=== PATIENT | female | born 1960 | race Hispanic/Latino ===

== ENCOUNTER 2018-01-15 19:47 | Observation (INO) | payer OTHER ==
[~2018-01-15] VITALS: Ht 152.4 cm; Wt 81.2 kg
[~2018-01-15 19:47] MED LIST: CALCIUM GLUCON500 MG PO; CYTOMEL 25 MCG25 MCG PO; NO HOME; PERCOCET 325 MG1 TA2 PO
--- NOTE | 2018-01-15 20:15 | ED GI/GU/ABDOMINAL COMPLAINT ---
History of Present Illness General Chief Complaint: Abdominal Pain/Flank Pain Stated Complaint: "ABD PAIN" Source: patient, family Exam Limitations: language barrier Allergies Coded Allergies: NO KNOWN ALLERGIES (07/10/15) Triage Note: PT FROM HOME C/O MID ABD PAIN SINCE 01/14/18 AT 2130. PT STATES SHE DRANK A DETOX TEA AND SINCE THEN HAS HAD CONSTANT BURNING SENSATION IN HER MID ABD THAT IS NON RADIATING. PT STATES SHE HAS NOT HAD A BOWEL MOVEMENT IN THE PAST 24 HRS. 01/06/18 PT HAD A COLONOSCOPY. PT STATES TAKING TUMS WITHOUT RELIEF. Triage Nurses Notes Reviewed? yes ? n Is pt currently ? No Onset: Abrupt Duration: day(s): Timing: recent history Quality/Severity: moderate Location: generalized abdomen Radiation: no radiation Activities at Onset: none HPI: 57-year-old female comes into the emergency room for further evaluation of generalized abdominal pain nausea and 1 episode of vomiting here in the emergency room. Symptoms began yesterday around 9 PM it got progressively worse. Denies any prior abdominal surgeries. Last bowel movement yesterday. Denies any urinary symptoms. Denies any chest pain or shortness of breath. She comes in for further evaluation. (Alexander CASTAÑEDA,Mando) Vital Signs & Intake/Output Vital Signs & Intake/Output Vital Signs Date Time Temp Pulse Resp B/P B/P Pulse O2 O2 Flow FiO2 Mean Ox Delivery Rate 01/17 0620 98.4 87 18 106/58 91 Room Air ED Intake and Output / 0000 05/ 1200 Intake Total 1060 Output Total 1250 Balance -190 Intake, IV 1000 Intake, Oral 60 Output, Urine 1250 (Velvet CASTAÑEDA,Mirna Farrell) Reconcile Medications Calcium Gluconate 500 MG TAB 1 TAB PO BID HEALTH SUPPLEMENT Liothyronine Sodium (Cytomel) 25 MCG TABLET 1 TAB PO DAILY thyroid (Reported) Oxycodone HCl/Acetaminophen (Percocet 5-325 MG Tablet) 5 MG-325 MG TABLET 1-2 TAB PO Q4-6 PRN PAIN (Tiffany GARCIA,Arsenio Blair) Past History Travel History Traveled to [place] past 21 day No Medical History Any Pertinent Medical History? see below for history Endocrine: hyperthyroidism History of MRSA: No History of VRE: No History of CDIFF: No Surgical History Surgical History: hysterectomy Psychosocial History Who do you live with Patient/Self What is your primary language English Tobacco Use: Never used Family History Hx Contributory? No (Mando Armstrong) Review of Systems Review of Systems Constitutional: Reports: no symptoms. EENTM: Reports: no symptoms. Respiratory: Reports: no symptoms. Cardiovascular: Reports: no symptoms. GI: Reports: see HPI. Genitourinary: Reports: no symptoms. Musculoskeletal: Reports: no symptoms. Skin: Reports: no symptoms. Neurological/Psychological: Reports: no symptoms. Hematologic/Endocrine: Reports: no symptoms. Immunologic/Allergic: Reports: no symptoms. All Other Systems: Reviewed and Negative (Mando Armstrong) Physical Exam Physical Exam General Appearance: well developed/nourished, alert, awake Head: atraumatic Eyes: Bilateral: normal appearance. Ears, Nose, Throat, Mouth: hearing grossly normal, moist mucous membrane Neck: normal inspection Respiratory: normal breath sounds, no respiratory distress Cardiovascular: regular rate/rhythm Gastrointestinal: soft, tenderness Back: normal inspection Extremities: normal range of motion Neurologic/Psych: awake, alert, oriented x 3 Skin: intact, normal color (Mando Armstrong) Core Measures ACS in differential dx? No Sepsis Present: No Sepsis Focused Exam Completed? No (Mirna Morin) Progress Differential Diagnosis: AMI, appendicitis, biliary colic, bowel obstruction, cholecystitis, diverticulitis, gastritis, ischemic bowel, pancreatitis, PID/ cervicitis, PUD/GERD, perforated viscous, SBO, UTI/pyelo Diagnostic Imaging: Viewed by Me: CT Scan. Discussed w/RAD: CT Scan. Initial ED EKG: normal sinus rhythm, rate (57) Hand-Off Endorsed To: Mirna Morin (Mando Armstrong) Plan of Care: Orders Procedure Date/time Status Wound Care/Dressing 01/17 0310 Active Discharge Patient 01/17 UNK Active OXYGEN SETUP CHG 01/16 UNK Complete OXYGEN 01/16 UNK Complete Laboratory Tests 01/17/18 0650: Anion Gap 12, Estimated GFR > 60, BUN/Creatinine Ratio 13.3, Total Bilirubin 0.5 , Direct Bilirubin 0.4, AST 99 H, ALT 161 H, Alkaline Phosphatase 107, Total Protein 6.1 L, Albumin 3.3 L Radiology Impression: PATIENT: NUVIA PEARCE PRESENT AGE: 57 PATIENT ACCOUNT NO: [id number] : 61 LOCATION: [facility] ORDERING PHYSICIAN: Mando CASTAÑEDA SERVICE DATE: 01/15/18 EXAM TYPE : CAT - CT ABD & PELVIS W IV CONTRAST EXAMINATION: CT ABDOMEN AND PELVIS WITH CONTRAST CLINICAL INFORMATION: Generalized abdominal pain. COMPARISON: None available. TECHNIQUE: Multidetector volumetric imaging was performed of the abdomen and pelvis following IV administration of 65 mL of Omnipaque 300 intravenous contrast. Sagittal and coronal reformatted images were obtained on the technologist's workstation. DLP: 536.08 mGy-cm FINDINGS: LUNG BASES: Mild hypoventilatory changes of the partially visualized lower lungs. LIVER, GALLBLADDER, AND BILIARY TREE: The liver is normal in size, shape, and attenuation. No focal hepatic lesion or biliary ductal dilatation is present. The gallbladder is mildly distended. No radiopaque stones. No gallbladder wall thickening. Minimal pericholecystic stranding of the adjacent fat. Common bile duct is normal. PANCREAS: Unremarkable. SPLEEN: Unremarkable. ADRENAL GLANDS: Unremarkable. KIDNEYS AND URETERS: The kidneys are normal in size, shape, and attenuation. No hydronephrosis, hydroureter, or calculi seen. No perinephric stranding. There are 2, tiny hypodensities in the left kidney is too small to characterize but most likely represents cysts. BLADDER: Unremarkable. GASTROINTESTINAL TRACT: The small and large bowel are unremarkable. The appendix is unremarkable. ABDOMINAL WALL: No significant hernia is appreciated. LYMPH NODES: Normal. VASCULAR: Unremarkable. PELVIC VISCERA: Unremarkable. OSSEOUS STRUCTURES: Unremarkable. IMPRESSION: Mildly distended gallbladder with possible minimal pericholecystic inflammatory stranding of the adjacent fat. This apparent stranding could be artifactual. Consider right upper quadrant ultrasound for further evaluation. Alternatively, if there is concern for acute cholecystitis, HIDA scan could also be obtained. No radiopaque gallstones. Common bile duct is not dilated. Otherwise unremarkable CT of the abdomen and pelvis. DICTATED BY: Pavan Scott MD DATE/TIME DICTATED:01/15/182219 LOTTERIES AGENT:CARMEN DATE/TIME TRANSCRIBED:01/15/182219 CONFIDENTIAL, DO NOT COPY WITHOUT APPROPRIATE AUTHORIZATION. <Electronically signed in Other Vendor System> SIGNED BY: Pavan Scott MD 01/15/182228 Comments: CT scan shows mild distention of gallbladder with minimal surrounding fat stranding. Patient reports improvement in her pain. I examined the patient's abdomen, she has RUQ tenderness at this time. Lactic acid is elevated. Awaiting general surgery consult. 11:25 PM - spoke with Vaughn Burns MD regarding this patient. Surgical PA to evaluate the patient. 11:55 PM - following evaluation by surgical PA patient to be surgical observation for gallbladder ultrasound tomorrow and futher surgical evlauation. (Velvet CASTAÑEDA,Mirna Farrell) Departure Departure Condition: Stable Referrals: Isela GARCIA,Connie Dominguez (PCP/Family) Departure Forms: Customer Survey General Discharge Information (Mando Armstrong) Departure Disposition: STILL A PATIENT Clinical Impression Primary Impression: Abdominal pain Qualifiers: Abdominal location: right upper quadrant Qualified Code: R10.11 - Right upper quadrant pain Secondary Impressions: Gallbladder dilatation Observation Note Spoke With: Gratn GARCIA,Vaughn Roman Physician Advisor Notified: COREY WARD DO Place Patient In: Non-ED OBS Care Area Rationale for Observation: My rational for observation is as follows [persistent abdominal pain with CAT scan showing gallbladder dilation and possible surrounding inflammation requiring gallbladder ultrasound, Gen. surgery consult, IV fluids, premature discharge medically unsafe]. (Velvet CASTAÑEDA,Mirna Farrell) Departure Prescriptions: Current Visit Scripts Oxycodone HCl/Acetaminophen (Percocet 5-325 MG Tablet) 1-2 TAB PO Q4-6 PRN PAIN #36 TAB PA/CARD SERVICES SPECIALIST Co-Sign Statement Statement: ED Attending supervision documentation- [] I saw and evaluated the patient. I have also reviewed all the pertinent lab results and diagnostic results. I agree with the findings and the plan of care as documented in the PA's/CARD SERVICES SPECIALIST's documentation. [x] I have reviewed the ED Record and agree with the PA's/CARD SERVICES SPECIALIST's documentation. [] Additions or exceptions (if any) to the PAs/CARD SERVICES SPECIALIST's note and plan are summarized below: [] (Tiffany GARCIA,Arsenio Blair) (Morphine) Morphine Sulfate 4 MG Q4P PRN 01/16 0100 AC (MORPHINE SULFATE) Ondansetron HCl 4 MG Q6P PRN 01/16 0100 AC (Zofran) Acetaminophen 1,000 MG Q6P PRN 01/16 0030 AC (Ofirmev) N/A 1 UNIT (No Carrier) Heparin Sodium 5,000 UNIT Q8 01/16 0014 AC 01/16 (Porcine) 1356 Laboratory Tests 01/16/18 0800: Anion Gap 10, Estimated GFR > 60, BUN/Creatinine Ratio 18.3, Total Bilirubin 0.4 , Direct Bilirubin 0.2, AST 32, ALT 54 H, Alkaline Phosphatase 92, Total Protein 5.7 L, Albumin 3.1 L, Lipase 55, PT 12.2, INR 1.12, APTT 27, CBC w Diff NO MAN DIFF REQ, RBC 3.78 L, MCV 92.9, MCH 32.0 H, MCHC 34.4, RDW 13.2, MPV 8.8, Gran % 63.6, Lymphocytes % 28.0, Monocytes % 6.8, Eosinophils % 1.3, Basophils % 0.3, Absolute Granulocytes 4.5, Absolute Lymphocytes 2.0, Absolute Monocytes 0.5, Absolute Eosinophils 0.1, Absolute Basophils 0 01/15/18 2330: Lactic Acid 1.4 01/15/18 2245: Urine Color YEL, Urine Clarity CLEAR, Urine pH 6.5, Ur Specific [place] 1.015, Urine Protein NEG, Urine Ketones NEG, Urine Nitrite NEG, Urine Bilirubin NEG, Urine Urobilinogen 0.2, Ur Leukocyte Esterase NEG, Ur Microscopic SEDIMENT EXAMINED, Urine RBC RARE, Urine WBC 1-3 H, Ur Epithelial Cells FEW, Urine Bacteria RARE H, Urine Mucus FEW, Urine Hemoglobin SMALL H, Urine Glucose NEG 01/15/182034: Anion Gap 14, Estimated GFR > 60, BUN/Creatinine Ratio 16.7, Glucose 119 H, Lactic Acid 2.5 H, Calcium 9.5, Total Bilirubin 0.5, Direct Bilirubin 0.3, AST 44 H, ALT 55 H, Alkaline Phosphatase 116, Troponin I < 0.01, Total Protein 7.5 , Albumin 4.4, Amylase 55, Lipase 89, CBC w Diff NO MAN DIFF REQ, RBC 4.63, MCV 92.6, MCH 30.6, MCHC 33.1, RDW 13.0, MPV 8.4, Gran % 73.2, Lymphocytes % 18.4 L , Monocytes % 7.3, Eosinophils % 0.8, Basophils % 0.3, Absolute Granulocytes 9.1 H, Absolute Lymphocytes 2.3, Absolute Monocytes 0.9 H, Absolute Eosinophils 0.1, Absolute Basophils 0 01/15/182025: Lactic Acid Cancelled Radiology Impression: PATIENT: NUVIA PEARCE PRESENT AGE: 57 PATIENT ACCOUNT NO: [id number] : 62 LOCATION: [facility] ORDERING PHYSICIAN: Mando CASTAÑEDA SERVICE DATE: 01/15/18 EXAM TYPE : CAT - CT ABD & PELVIS W IV CONTRAST EXAMINATION: CT ABDOMEN AND PELVIS WITH CONTRAST CLINICAL INFORMATION: Generalized abdominal pain. COMPARISON: None available. TECHNIQUE: Multidetector volumetric imaging was performed of the abdomen and pelvis following IV administration of 65 mL of Omnipaque 300 intravenous contrast. Sagittal and coronal reformatted images were obtained on the technologist's workstation. DLP: 536.08 mGy-cm FINDINGS: LUNG BASES: Mild hypoventilatory changes of the partially visualized lower lungs. LIVER, GALLBLADDER, AND BILIARY TREE: The liver is normal in size, shape, and attenuation. No focal hepatic lesion or biliary ductal dilatation is present. The gallbladder is mildly distended. No radiopaque stones. No gallbladder wall thickening. Minimal pericholecystic stranding of the adjacent fat. Common bile duct is normal. PANCREAS: Unremarkable. SPLEEN: Unremarkable. ADRENAL GLANDS: Unremarkable. KIDNEYS AND URETERS: The kidneys are normal in size, shape, and attenuation. No hydronephrosis, hydroureter, or calculi seen. No perinephric stranding. There are 2, tiny hypodensities in the left kidney is too small to characterize but most likely represents cysts. BLADDER: Unremarkable. GASTROINTESTINAL TRACT: The small and large bowel are unremarkable. The appendix is unremarkable. ABDOMINAL WALL: No significant hernia is appreciated. LYMPH NODES: Normal. VASCULAR: Unremarkable. PELVIC VISCERA: Unremarkable. OSSEOUS STRUCTURES: Unremarkable. IMPRESSION: Mildly distended gallbladder with possible minimal pericholecystic inflammatory stranding of the adjacent fat. This apparent stranding could be artifactual. Consider right upper quadrant ultrasound for further evaluation. Alternatively, if there is concern for acute cholecystitis, HIDA scan could also be obtained. No radiopaque gallstones. Common bile duct is not dilated. Otherwise unremarkable CT of the abdomen and pelvis. DICTATED BY: Pavan Scott MD DATE/TIME DICTATED:01/15/182219 LOTTERIES AGENT:CARMEN DATE/TIME TRANSCRIBED:01/15/182219 CONFIDENTIAL, DO NOT COPY WITHOUT APPROPRIATE AUTHORIZATION. <Electronically signed in Other Vendor System> SIGNED BY: Pavan Scott MD 01/15/182228 Comments: CT scan shows mild distention of gallbladder with minimal surrounding fat stranding. Patient reports improvement in her pain. I examined the patient's abdomen, she has RUQ tenderness at this time. Lactic acid is elevated. Awaiting general surgery consult. 11:25 PM - spoke with Vaughn Burns MD regarding this patient. Surgical PA to evaluate the patient. 11:55 PM - following evaluation by surgical PA patient to be surgical observation for gallbladder ultrasound tomorrow and futher surgical evlauation. (Velvet CASTAÑEDA,Mirna Farrell) Departure Departure Condition: Stable Referrals: Isela GARCIA,Connie Dominguez (PCP/Family) Departure Forms: Customer Survey General Discharge Information (Mando Armstrong) Departure Disposition: STILL A PATIENT Clinical Impression Primary Impression: Abdominal pain Qualifiers: Abdominal location: right upper quadrant Qualified Code: R10.11 - Right upper quadrant pain Secondary Impressions: Gallbladder dilatation Observation Note Spoke With: Grant GARCIA,Vaughn Roman Physician Advisor Notified: COREY WARD DO Place Patient In: Non-ED OBS Care Area Rationale for Observation: My rational for observation is as follows [persistent abdominal pain with CAT scan showing gallbladder dilation and possible surrounding inflammation requiring gallbladder ultrasound, Gen. surgery consult, IV fluids, premature discharge medically unsafe]. (Mirna Morin)
[2018-01-15 20:59] LABS: ABSOLUTE BASOPHIL COUNT 0 /CUMM (0.0-0.2); ABSOLUTE EOSINOPHIL COUNT 0.1 /CUMM (0.0-0.7); ABSOLUTE GRANULOCYTE CT 9.1 /CUMM (1.4-6.5); ABSOLUTE LYMPH COUNT 2.3 /CUMM (1.2-3.4); ABSOLUTE MONOCYTE COUNT 0.9 /CUMM (0.10-0.60); BASOPHIL % 0.3 % (0.0-2.0); EOSINOPHIL % 0.8 % (0-5); GRANULOCYTE % 73.2 % (42.2-75.2); HEMATOCRIT 42.9 % (37-47); MEAN CORPUSCULAR HGB 30.6 PG (27.0-31.0); MEAN CORPUSCULAR HGB CONC 33.1 G/DL (33.0-37.0); MEAN CORPUSCULAR VOLUME 92.6 FL (81.0-99.0); MEAN PLATELET VOLUME 8.4 FL (7.4-10.4); PLATELET COUNT 236 /CUMM (130-400); RED BLOOD CELL CT 4.63 /CUMM (4.20-5.40); WHITE BLOOD CELL COUNT 12.4 /CUMM (4.8-10.8)
--- NOTE | 2018-01-15 22:29 | CT SCAN REPORT ---
EXAMINATION: CT ABDOMEN AND PELVIS WITH CONTRAST CLINICAL INFORMATION: Generalized abdominal pain. COMPARISON: None available. TECHNIQUE: Multidetector volumetric imaging was performed of the abdomen and pelvis following IV administration of 65 mL of Omnipaque 300 intravenous contrast. Sagittal and coronal reformatted images were obtained on the technologist's workstation. DLP: 536.08 mGy-cm FINDINGS: LUNG BASES: Mild hypoventilatory changes of the partially visualized lower lungs. LIVER, GALLBLADDER, AND BILIARY TREE: The liver is normal in size, shape, and attenuation. No focal hepatic lesion or biliary ductal dilatation is present. The gallbladder is mildly distended. No radiopaque stones. No gallbladder wall thickening. Minimal pericholecystic stranding of the adjacent fat. Common bile duct is normal. PANCREAS: Unremarkable. SPLEEN: Unremarkable. ADRENAL GLANDS: Unremarkable. KIDNEYS AND URETERS: The kidneys are normal in size, shape, and attenuation. No hydronephrosis, hydroureter, or calculi seen. No perinephric stranding. There are 2, tiny hypodensities in the left kidney is too small to characterize but most likely represents cysts. BLADDER: Unremarkable. GASTROINTESTINAL TRACT: The small and large bowel are unremarkable. The appendix is unremarkable. ABDOMINAL WALL: No significant hernia is appreciated. LYMPH NODES: Normal. VASCULAR: Unremarkable. PELVIC VISCERA: Unremarkable. OSSEOUS STRUCTURES: Unremarkable. IMPRESSION: Mildly distended gallbladder with possible minimal pericholecystic inflammatory stranding of the adjacent fat. This apparent stranding could be artifactual. Consider right upper quadrant ultrasound for further evaluation. Alternatively, if there is concern for acute cholecystitis, HIDA scan could also be obtained. No radiopaque gallstones. Common bile duct is not dilated. Otherwise unremarkable CT of the abdomen and pelvis.
--- NOTE | 2018-01-16 00:32 | Cons- General Surgery ---
General Information and HPI Consulting Request Date of Consult: 01/16/18 Requested By: Dr. Brink Reason for Consult: abdominal pain Source of Information: patient, family Exam Limitations: no limitations History of Present Illness: A 57 y/o female arrives to the ER complaining of epigastric pain and right upper quadrant pain that is been persistent for more than 24 hours. Patient states 24 -hour ago the pain started after she drank some herbal tea she started to feel some discomfort in the epigastrium and that radiated to the right upper quadrant and into her back. She associated nausea and 1 episode of vomiting. The pain has become progressively worse despite conservative measures at home. She decided to come to the emergency room for further evaluation. While in the ER her vital signs have remained stable she is been given IV Tylenol which helped initially however the pain has returned. She denies any fevers or chills no chest pain no shortness of breath no cough or congestion previous abdominal surgeries she does have some constipation Allergies/Medications Allergies: Coded Allergies: NO KNOWN ALLERGIES (07/10/15) Home Med List: Calcium Gluconate 500 MG TAB 1 TAB PO BID HEALTH SUPPLEMENT Liothyronine (Cytomel 25 Mcg) 25 MCG TAB 1 TAB PO BID THYROID HEALTH OXYCODONE HCL/ACETAMINOPHEN (Percocet 5-325 MG Tablet) 325 MG/5 MG TAB 1-2 TAB PO Q4P PRN PAIN SCALE 1-4 Current Medications: Current Medications Sig/Chichi Start time Last Medication Dose Route Stop Time Status Admin Acetaminophen 1,000 MG Q6P PRN 01/16 0030 UNVr N/A 1 UNIT IV Acetaminophen 0 .STK-MED ONE 01/15 2026 DC IV Acetaminophen 1,000 MG ONCE ONE 01/15 2015 DC 01/15 N/A 1 UNIT IV 01/15 Ampicillin Sodium/ 3,000 MG Q6 01/16 0100 UNVr Sulbactam Sodium IV Sodium Chloride 100 ML Dextrose/Sodium 1,000 ML Q10H 01/16 0100 UNVr Chloride IV Docusate Sodium 100 MG DAILY PRN 01/16 0100 UNVr PO Heparin Sodium 5,000 UNIT Q8 01/16 0014 UNVr (Porcine) SC Morphine Sulfate 2 MG Q4P PRN 01/16 0100 UNVr IV Morphine Sulfate 4 MG Q4P PRN 01/16 0100 UNVr IV Ondansetron HCl 4 MG Q6P PRN 01/16 0100 UNVr IV Ondansetron HCl 0 .STK-MED ONE 01/15 2026 DC .ROUTE Ondansetron HCl 4 MG ONCE ONE 01/15 2015 DC 01/15 IV 01/15 Sodium Chloride 1,000 ML BOLUS ONE 01/15 2245 DC 01/15 IV 01/16 2344 2250 Sodium Chloride 1,000 ML BOLUS ONE 01/15 2015 DC 01/15 IV 01/15 Past History Medical History Blood Transfusion Hx: No EENT: NONE (thyroidectomy) Cardiovascular: NONE Respiratory: NONE Gastrointestinal: NONE Hepatic: NONE Endocrine: hyperthyroidism Surgical History Pertinent Surgical History: none (thyroidectomy), hysterectomy Psychosocial History Where Do You Live? Home Who Do You Live With? spouse Primary Language: Niuean Smoking Status: Never Smoked ETOH Use: occasional use Illicit Drug Use: denies illicit drug use Functional Ability Ambulation: independent Employment History Retired? no Review of Systems Review of Systems: Constitutional: No chills no fever no weakness HEENT: No blurred vision visual changes no throat pain nasal pain CV: denies chest pain edema orthopnea syncopal episode no peripheral edema Respiratory: No cough hemoptysis shortness of breath or wheeze GI: pos abdominal pain no bloating pos constipation no diarrhea or bloody stools pos vomiting Musculoskeletal: No neck pain back pain or joint swelling Skin: No recent acute changes in skin Neurological: No dizziness weakness or acute mental status changes Hematologic: no history of blood dyscrasia to include PE DVT or bleeding disorder No reported reaction to general anesthetics No recent fevers fluids or infections Review of Systems Constitutional: Denies: chills, weakness. GI: Reports: abdominal pain, constipation, nausea, vomiting. Exam & Diagnostic Data Vital Signs and I&O Vital Signs Date Time Temp Pulse Resp B/P B/P Pulse O2 O2 Flow FiO2 Mean Ox Delivery Rate 01/15 2238 98.7 68 18 132/58 96 Room Air 01/16 1956 98.9 63 18 160/79 98 Room Air Intake & Output 01/16 0800 01/16 0000 01/15 1600 01/15 0801/15 0000 01/14 1600 Intake Total Output Total Balance Patient 180 lb Weight Weight Reported by Patient Measurement Method Physical Exam: Patient is alert and oriented 3 lying on the stretcher and appears comfortable. HEENT is within normal limits Neck is supple nontender with active range of motion Chest clear to auscultation symmetric without rales rhonchi or wheeze Heart is regular rate rhythm without murmurs rubs gallops Abdomen is rounded and obese with mild distention tender right upper quadrant with positive Rivero sign of bowel sounds throughout Lower extremities no edema no calf tenderness distal pulses intact CT scan -LIVER, GALLBLADDER, AND BILIARY TREE: The liver is normal in size, shape, and attenuation. No focal hepatic lesion or biliary ductal dilatation is present. The gallbladder is mildly distended. No radiopaque stones. No gallbladder wall thickening. Minimal pericholecystic stranding of the adjacent fat. Common bile duct is normal. Admission Lab Results I reviewed the following labs: Laboratory Tests 01/15 01/15 2330 2245 Chemistry Lactic Acid (0.7 - 2.1 mmol/L) 1.4 Urines Urine Color (YEL,AMB,STR) YEL Urine Clarity (CLEAR) CLEAR Urine pH (5.0 - 8.0) 6.5 Ur Specific [place] (1.001 - 1.035) 1.015 Urine Protein (NEG,<30 MG/DL) NEG Urine Ketones (NEG) NEG Urine Nitrite (NEG) NEG Urine Bilirubin (NEG) NEG Urine Urobilinogen (0.1 - 1.0 EU/dl) 0.2 Ur Leukocyte Esterase (NEG) NEG Ur Microscopic SEDIMENT EXAMINED Urine RBC (0 - 5 /HPF) RARE Urine WBC (0 - 2 /HPF) 1-3 H Ur Epithelial Cells (NONE,FEW) FEW Urine Bacteria (NEG/NONE) RARE H Urine Mucus (FEW,NONE) FEW Urine Hemoglobin (NEG) SMALL H Urine Glucose (N MG/DL) NEG 01/15 Chemistry Sodium (137 - 145 mmol/L) 146 H Potassium (3.5 - 5.1 mmol/L) 3.9 Chloride (98 - 107 mmol/L) 102 Carbon Dioxide (22 - 30 mmol/L) 30 Anion Gap (5 - 16) 14 BUN (7 - 17 mg/dL) 15 Creatinine (0.5 - 1.0 mg/dL) 0.9 Estimated GFR (>60 ml/min) > 60 BUN/Creatinine Ratio (7 - 25 %) 16.7 Glucose (65 - 99 mg/dL) 119 H Lactic Acid (0.7 - 2.1 mmol/L) 2.5 H Cancelled Calcium (8.4 - 10.2 mg/dL) 9.5 Total Bilirubin (0.2 - 1.3 mg/dL) 0.5 Direct Bilirubin (< 0.4 mg/dL) 0.3 AST (14 - 36 U/L) 44 H ALT (9 - 52 U/L) 55 H Alkaline Phosphatase (<127 U/L) 116 Troponin I (< 0.11 ng/ml) < 0.01 Total Protein (6.3 - 8.2 g/dL) 7.5 Albumin (3.5 - 5.0 g/dL) 4.4 Amylase (30 - 110 U/L) 55 Lipase (23 - 300 U/L) 89 Hematology CBC w Diff NO MAN DIFF REQ WBC (4.8 - 10.8 /CUMM) 12.4 H RBC (4.20 - 5.40 /CUMM) 4.63 Hgb (12.0 - 16.0 G/DL) 14.2 Hct (37 - 47 %) 42.9 MCV (81.0 - 99.0 FL) 92.6 MCH (27.0 - 31.0 PG) 30.6 MCHC (33.0 - 37.0 G/DL) 33.1 RDW (11.5 - 14.5 %) 13.0 Plt Count (130 - 400 /CUMM) 236 MPV (7.4 - 10.4 FL) 8.4 Gran % (42.2 - 75.2 %) 73.2 Lymphocytes % (20.5 - 51.1 %) 18.4 L Monocytes % (1.7 - 9.3 %) 7.3 Eosinophils % (0 - 5 %) 0.8 Basophils % (0.0 - 2.0 %) 0.3 Absolute Granulocytes (1.4 - 6.5 /CUMM) 9.1 H Absolute Lymphocytes (1.2 - 3.4 /CUMM) 2.3 Absolute Monocytes (0.10 - 0.60 /CUMM) 0.9 H Absolute Eosinophils (0.0 - 0.7 /CUMM) 0.1 Absolute Basophils (0.0 - 0.2 /CUMM) 0 Assessment/Plan Assessment/Plan 57-year-old female arrived to the emergency room complaining of right upper quadrant pain CAT scan performed in the ER shows inflammation of the gallbladder with surrounding fluid. despite given IV Tylenol the pain is persistent. DVC count and lactic acid are slightly elevated enzymes are also slightly elevated And she will be admitted to the surgical service started on IV fluids and Unasyn and be nothing by mouth. Morning right upper quadrant ultrasound DVT prophylaxis will be Alps and heparin subcutaneous Consult Acknowledgment - Thank you for your consult request.
[2018-01-16 02:10] VITALS: BP 98/54
[2018-01-16 06:01] VITALS: BP 102/62
[2018-01-16 08:44] LABS: PT 12.2 SEC (9.4-12.5); PTT 27 SEC (25-37)
[2018-01-16 09:11] LABS: ABSOLUTE BASOPHIL COUNT 0 /CUMM (0.0-0.2); ABSOLUTE EOSINOPHIL COUNT 0.1 /CUMM (0.0-0.7); ABSOLUTE GRANULOCYTE CT 4.5 /CUMM (1.4-6.5); ABSOLUTE MONOCYTE COUNT 0.5 /CUMM (0.10-0.60); BASOPHIL % 0.3 % (0.0-2.0); EOSINOPHIL % 1.3 % (0-5); GRANULOCYTE % 63.6 % (42.2-75.2); MEAN CORPUSCULAR HGB CONC 34.4 G/DL (33.0-37.0); MEAN CORPUSCULAR VOLUME 92.9 FL (81.0-99.0); MEAN PLATELET VOLUME 8.8 FL (7.4-10.4); PLATELET COUNT 172 /CUMM (130-400); RBC DISTRIBUTION WIDTH 13.2 % (11.5-14.5); RED BLOOD CELL CT 3.78 /CUMM (4.20-5.40); WHITE BLOOD CELL COUNT 7.2 /CUMM (4.8-10.8)
--- NOTE | 2018-01-16 09:19 | History & Physical Pre-Op ---
General Information and HPI Source of Information: patient, family Exam Limitations: no limitations History of Present Illness: CC: abdominal pain HPI: 57 yo non-diabetic non-smoker with a history of hypothyroidism ( thyroidectomy), and constipation, little over 24 hours ago had a special tea her [id number] made for and then severe abdominal pain which is a little better now in the ER . Earlier she recalls she had leftover takeout Lithuanian. Pain was RUQ / epigastric did not radiate, not worse with activity, some nausea initially , no similar prior episodes no fevers no particular darkening of urine (ie iced tea) or lightening / loose stools (krishnamurthy), no FHx of gallbladder problems. Otherwise no changes bowel habits, weight or appetite. I've reviewed the [facility]. No history of GERD, PUD, bleeding problems, heart disease or issues with anesthesia. Family history negative for colorectal cancer Allergies/Medications Allergies: Coded Allergies: NO KNOWN ALLERGIES (07/10/15) Home Med list Calcium Gluconate 500 MG TAB 1 TAB PO BID HEALTH SUPPLEMENT Liothyronine Sodium (Cytomel) 25 MCG TABLET 1 TAB PO DAILY thyroid (Reported) OXYCODONE HCL/ACETAMINOPHEN (Percocet 5-325 MG Tablet) 325 MG/5 MG TAB 1-2 TAB PO Q4P PRN PAIN SCALE 1-4 Past History Medical History Blood Transfusion Hx: No Neurological: NONE EENT: NONE (thyroidectomy) Cardiovascular: NONE Respiratory: NONE Gastrointestinal: NONE Hepatic: NONE Renal: NONE Musculoskeletal: NONE Psychiatric: NONE Endocrine: hyperthyroidism Blood Disorders: NONE Cancer(s): NONE NET MOBILE DEVELOPER/Reproductive: fibroid History of MRSA: No History of VRE: No History of CDIFF: No Surgical History Pertinent Surgical History: hysterectomy, N (thyroidectomy) Past Family/Social History Psychosocial History Where Do You Live? Home Who Do You Live With? spouse Primary Language: Thai Smoking Status: Never Smoked ETOH Use: occasional use Illicit Drug Use: denies illicit drug use Functional Ability Ambulation: independent Review of Systems Review of Systems: Constitutional: No fever, sweats or weight loss ENMT: No sore throat Cardiovascular: No chest pain, palpitations or leg swelling Respiratory: No shortness of breath, cough, or sputum or dyspnea on exertion GI: No GERD or bleeding per rectum : No dysuria or hematuria Musculoskeletal: No new muscle weakness, bone or joint pain Skin / Breast: No jaundice, rashes or itching Psychiatric: No history of drug or alcohol abuse no depression or anxiety Hematologic / lymphatic system: No problems with excessive bleeding, bruising, or blood clots Exam & Diagnostic Data Last 24 Hrs of Vital Signs/I&O I reviewed Vital Signs Date Time Temp Pulse Resp B/P B/P Pulse O2 O2 Flow FiO2 Mean Ox Delivery Rate 01/16 0601 98.0 66 20 102/62 93 Room Air 01/16 0210 97.9 64 20 98/54 93 Room Air 01/16 0137 98.8 64 18 148/70 99 01/15 2238 98.7 68 18 132/58 96 Room Air 01/15 1956 98.9 63 18 160/79 98 Room Air I reviewed Intake & Output 01/16 1600 01/16 0800 01/16 0000 Intake Total 2850 Output Total Balance 2850 Intake, IV 2850 Patient 179 lb 180 lb Weight Weight Reported by Patient Measurement Method Physical Exam: Constitutional: pleasant, no acute distress, conversant Eyes: sclera anicteric ENMT: ears and nose atraumatic, moist mucous membranes, good dentition, no lip lesions Neck: Supple, trachea is midline, no cervical or supraclavicular adenopathy and no palpable thyromegaly Cardiovascular: S1, S2, no murmurs, no peripheral edema Respiratory: clear to auscultation with normal respiratory effort and no intercostal retractions GI: abdomen soft, right upper quadrant tenderness says less than yesterday, nondistended, no palpable hepatosplenomegaly Extremities / lymphatics: symmetrically warm, free range of motion no peripheral edema, no cervical, supraclavicular, axillary, or inguinal adenopathy Musculoskeletal: Did not evaluate gait and station, no digital cyanosis, good muscle strength and tone no atrophy, motor grossly 5 out of 5 throughout Skin: no jaundice, no rashes warm, nondiaphoretic, no areas of erythema or induration Psychiatric: mood and affect are appropriate and alert and oriented to person place and time Last 24 Hrs of Labs/Rhett: I reviewed Laboratory Tests 01/16/18 0800: Anion Gap 10, Estimated GFR > 60, BUN/Creatinine Ratio 18.3, Total Bilirubin 0.4 , Direct Bilirubin 0.2, AST 32, ALT 54 H, Alkaline Phosphatase 92, Total Protein 5.7 L, Albumin 3.1 L, Lipase 55, PT 12.2, INR 1.12, APTT 27, CBC w Diff Pending, WBC Pending, RBC Pending, Hgb Pending, Hct Pending, MCV Pending, MCH Pending, MCHC Pending, RDW Pending, Plt Count Pending, MPV Pending 01/15/18 2330: Lactic Acid 1.4 01/15/182244: Urine Color YEL, Urine Clarity CLEAR, Urine pH 6.5, Ur Specific [place] 1.015, Urine Protein NEG, Urine Ketones NEG, Urine Nitrite NEG, Urine Bilirubin NEG, Urine Urobilinogen 0.2, Ur Leukocyte Esterase NEG, Ur Microscopic SEDIMENT EXAMINED, Urine RBC RARE, Urine WBC 1-3 H, Ur Epithelial Cells FEW, Urine Bacteria RARE H, Urine Mucus FEW, Urine Hemoglobin SMALL H, Urine Glucose NEG 01/15/182034: Anion Gap 14, Estimated GFR > 60, BUN/Creatinine Ratio 16.7, Glucose 119 H, Lactic Acid 2.5 H, Calcium 9.5, Total Bilirubin 0.5, Direct Bilirubin 0.3, AST 44 H, ALT 55 H, Alkaline Phosphatase 116, Troponin I < 0.01, Total Protein 7.5 , Albumin 4.4, Amylase 55, Lipase 89, CBC w Diff NO MAN DIFF REQ, RBC 4.63, MCV 92.6, MCH 30.6, MCHC 33.1, RDW 13.0, MPV 8.4, Gran % 73.2, Lymphocytes % 18.4 L , Monocytes % 7.3, Eosinophils % 0.8, Basophils % 0.3, Absolute Granulocytes 9.1 H, Absolute Lymphocytes 2.3, Absolute Monocytes 0.9 H, Absolute Eosinophils 0.1, Absolute Basophils 0 01/15/182025: Lactic Acid Cancelled Assessment/Plan Assessment/Plan: Studies I reviewed yesterday's CT scan on PACS myself that shows a dilated slightly inflamed gallbladder, ultrasound today shows one large stone wall thickening pericholecystic fluid but a negative Rivero's My impression is symptomatic gallstones. The story is somewhat typical, though she feels better the imaging shows acute cholecystitis, so I recommend cholecystectomy. The current standard of care is removal of the gallbladder laparoscopically, preferably not emergently. Once they become symptomatic, gallstones can lead to complications such as cholecystitis, pancreatitis and cholangitis and rarely others. More workup is not needed but we will get a preoperative labs including LFTs. I explained the nature and possibility of retained stones, and rarely, persistent postoperative diarrhea. I kam a diagram illustrating how the stones cause problems and how the anatomy and inflammation can make the surgery more difficult, sometimes requiring an open procedure, and rarely to repair a bile duct injury leading to significant morbidity and even mortality. This in our practice is exceedingly rare, but other more common risks were also discussed such as infection, injury to other surrounding structures such as bowel and blood vessels. We also discussed the potential risks, benefits and alternatives to the procedure and surgery in general, issues that included but were not limited to, anesthetic risks hemorrhage requiring transfusion, the risk of transfusion itself, infection, heart attack, stroke, . As Ranked By This Provider Problem List: 1. Acute calculous cholecystitis
[2018-01-16 09:34] LABS: HEMATOCRIT 35.1 % (37-47)
--- NOTE | 2018-01-16 12:45 | ULTRASOUND REPORT ---
EXAMINATION: US ABDOMEN LIMITED CLINICAL INFORMATION: Right upper quadrant pain. Presumptive diagnosis of cholecystitis. COMPARISON: CT scan of the abdomen and pelvis dated 01/15/2018. TECHNIQUE: Real-time imaging of the right upper quadrant abdominal viscera. FINDINGS: PANCREAS: Only small portions of the pancreatic body are visualized and appear unremarkable. Remainder of the pancreas is obscured by overlying bowel gas. LIVER: The liver demonstrates normal size and contour. There is diffuse increased in hepatic parenchymal echogenicity, limiting sound beam penetration, consistent with diffuse infiltrative disease, most likely extensive hepatic steatosis. No focal lesion or intrahepatic biliary duct dilatation. GALLBLADDER: There is a 2.0 x 1.1 x 2.2 cm densely calcified shadowing gallstone seen lodged within the gallbladder neck. Mild thickening and edema of the gallbladder wall is seen with the gallbladder wall measuring up to 0.6 cm in thickness. Small amount of pericholecystic fluid is also seen. No sonographic Rivero sign is elicited while scanning over the gallbladder. COMMON BILE DUCT: Normal in caliber measuring 0.4 cm in diameter. RIGHT KIDNEY: Normal. No hydronephrosis. No renal calculi or focal parenchymal lesions. The kidney measures 11.5 cm in maximum dimension. FREE FLUID: None. IMPRESSION: 1. Abnormal appearance of the gallbladder with gallbladder wall thickening and pericholecystic edema seen. Findings are nonspecific in the setting of diffuse hepatic parenchymal disease and may simply reflect secondary findings of hepatic dysfunction. However, acute cholecystitis cannot be excluded. There is a gallstone seen dependently lodged within the gallbladder neck. Close clinical correlation is requested. HIDA scan, as suggested previously, may be helpful in further clarification of imaging findings. 2. Diffusely increased hepatic parenchymal echogenicity, consistent with diffuse infiltrative disease, most likely extensive hepatic steatosis. Close clinical correlation requested. 3. Incomplete view of the pancreas. Only small portions of the pancreatic body are seen and are unremarkable.
[2018-01-16 13:52] VITALS: BP 126/80
[2018-01-16 20:15] VITALS: BP 102/60
--- NOTE | 2018-01-16 21:13 | PN- General Surgery ---
Subjective Subjective: Post op check Awake, alert Tolerating regular diet Pain is well controlled at this time Objective Vital Signs and I&Os Vital Signs Date Time Temp Pulse Resp B/P B/P Pulse O2 O2 Flow FiO2 Mean Ox Delivery Rate 01/16 1352 98.1 67 20 126/80 95 Room Air 01/16 0601 98.0 66 20 102/62 93 Room Air 01/16 0210 97.9 64 20 98/54 93 Room Air 01/16 0137 98.8 64 18 148/70 99 01/15 2238 98.7 68 18 132/58 96 Room Air Intake & Output 01/16 1600 01/16 0800 01/16 0000 01/15 1600 01/15 0000 Intake Total 2029 2850 Output Total Balance 2029 2850 Intake, IV 1999 2850 Intake, Oral 30 Patient 179 lb 180 lb Weight Weight Reported by Patient Measurement Method Physical Exam: vss, afebrile General: alert and oriented times three Chest; clear anteriorly bilaterally, RRR Abd: soft, good bs Ext: warm, no edema Wd: dressed, dry Assessment/Plan Assessment/Plan 57yo female s/p lap robb regular diet pain management dc planning Core Measures Venous Thromboembolism VTE Risk Factors Surgery No Mechanical VTE Prophylaxis d/t N/A MechProphylax Ordered No VTE Pharm Prophylaxis d/t NA PharmProphylax ordered
[2018-01-16] MEDS ORDERED: CYTOMEL25 MC1 PO ×2 (22:10→22:11)
--- NOTE | 2018-01-16 22:14 | Patient Discharge Instructions ---
Discharge Instructions General Discharge Information You were seen/treated for: Gallstones You had these procedures: lap cholecystectomy Watch for these problems: te,p>101, increased redness or drainage of wounds No bath, but you may shower: Yes Other wound care: Keep incision clean and dry. Diet Continue normal diet: Yes Activity Activity Self Limited: Yes Pounds, do NOT lift more than: 10 Acute Coronary Syndrome Inclusion Criteria At DC or during hospital stay patient has or had the following: ACS DIAGNOSIS No Discharge Core Measures Meds if any: Prescribed or Continued at Discharge Meds if any: NOT Prescribed or Continued at Discharge Congestive Heart Failure Inclusion Criteria At DC or during hospital stay patient has or had the following: CHF DIAGNOSIS No Discharge Core Measures Meds if any: Prescribed or Continued at Discharge Meds if any: NOT Prescribed or Continued at Discharge Cerebrovascular accident Inclusion Criteria At DC or during hospital stay patient has or had the following: CVA/TIA Diagnosis No Discharge Core Measures Meds if any: Prescribed or Continued at Discharge Meds if any: NOT Prescribed or Continued at Discharge Venous thromboembolism Inclusion Criteria VTE Diagnosis No VTE Type NONE VTE Confirmed by (Test) NONE Discharge Core Measures - Per Current guidelines, there needs to be overlap - treatment for the first 5 days of Warfarin therapy. - If discharged on Warfarin prior to 5 days of - overlap therapy, the patient will need to be - assessed for post discharge needs including - *Post discharge parental anticoagulation - *Warfarin and/or parental anticoagulation education - *Follow up date to check INR post discharge At least 5 days overlap therapy as Inpatient No Meds if any: Prescribed or Continued at Discharge Note: Overlap Therapy is Warfarin and Anticoagulant Meds if any: NOT Prescribed or Continued at Discharge
--- NOTE | 2018-01-16 22:44 | Operative Report ---
Operative/Inv Procedure Report Surgery Date: 01/16/18 Name of Procedure: Laparoscopic cholecystectomy Pre-Operative Diagnosis: Acute cholecystitis Post-Operative Diagnosis: same Estimated Blood Loss: scant Surgeon/Shoe Maker: MD Rae Mejias MD Anesthesia: general endotracheal tube Operative/Procedure Note Note: Patient was positioned supine. After successful induction of general anesthesia, the patient's abdomen was clipped, prepped and draped in the usual sterile fashion. Local anesthetic was injected at the top of the umbilicus and then a curved horizontal incision little over a centimeter was made there with a 15 blade and then deepened to the midline fascia which was incised vertically a little over a centimeter. Both sides were secured with 0 Vicryl stay sutures and then the thin peritoneal layer was entered, 10 mm Mora trocar inserted obliquely to the right, and the gas was turned on to 15 mm. After insufflation and repositioning to reverse Trendelenburg, 3 more dissecting 5 mm trochars were placed in the right subcostal area, first lateral, then mid-subcostal, then subxiphoid. The gallbladder was inflamed acutely and the omentum was completely covering it and adherent it took some time to uncover 1 omental vessel needed a clip to control it then fundus was grasped from the lateral port and retracted up over the edge of the liver and then we dissected out the area of the triangle of Calot while retracting the infundibulum caudally / laterally. First the cystic duct was identified, isolated at the neck, clipped 3 times, divided after the second clip and then in similar fashion the cystic artery was identified medially, dissected and divided. Then the gallbladder was from the liver bed using cautery, this case there were more vessels to the gallbladder and the liver bed, once it was then lowered into an Endobag and removed through the umbilical incision. The instruments and then the trochars were removed letting the gas escape. The fascial incision was closed with a figure 8 Vicryl then all 4 skin incisions were closed with interrupted subcuticular 4-0 Monocryl, followed by Mastisol Steri-Strips and Bandaids. Estimated blood loss was minimal, lap and sponge counts were correct, wound expectancy was clean-contaminated, IV fluids crystalloid, complications none, patient tolerated the procedure well and was returned to the recovery room in satisfactory condition.
[2018-01-17 06:20] VITALS: BP 106/58
[2018-01-17] MEDS ORDERED: PERCOCET 5-3251 EACH PO ×3 (08:50→08:55)
--- NOTE | 2018-01-17 09:08 | PN- General Surgery ---
Subjective Subjective: No acute overnight events. Tolerating diet No pain Voiding No nausea or vomitting Objective Vital Signs and I&Os Vital Signs Date Time Temp Pulse Resp B/P B/P Pulse O2 O2 Flow FiO2 Mean Ox Delivery Rate 01/18 620 98.4 87 18 106/58 91 Room Air 01/16 2015 98.0 66 20 102/60 91 Room Air 01/16 1352 98.1 67 20 126/80 95 Room Air Intake & Output 01/17 0801/17 0000 01/16 1600 01/16 0800 01/16 0000 Intake Total 5367 501 9016 2850 Output Total 1250 Balance -609 404 2644 2850 Intake, IV 3264 248 2815 2850 Intake, Oral 60 480 30 Output, Urine 1250 Patient 179 lb 180 lb Weight Weight Reported by Patient Measurement Method Physical Exam: Gen: AAO x3 Abd: Soft, non-tender, non-distended Drssings intact Assessment/Plan Assessment/Plan POD 1 s/p lap robb, progressing well follow up lfts dc to home today if labs wnl discussed with Dr. Burns Core Measures Venous Thromboembolism VTE Risk Factors Surgery No Mechanical VTE Prophylaxis d/t N/A MechProphylax Ordered No VTE Pharm Prophylaxis d/t NA PharmProphylax ordered
== END 2018-01-17 13:20 ==
LOC: ERH 19:47 → 2NA 23:52 → ERHI 23:52 → ENRESERV 01-16 00:57 → 2NA 01-16 01:56 → CMPBEDREQ 01-16 10:08 → ENTRNSPT 01-16 19:41 → EDTRNSPT 01-16 20:05 → EDTRNSPTSTS 01-16 20:05 → CMPTRNSPT 01-16 20:38 → ENPENDDIS 01-17 09:18 → 2NA 01-17 13:20
PROVIDERS: Pediatrics; Physician Assistant
DX: K80.10 Calculus of gallbladder with chronic cholecystitis without obstruction (principal); E03.9 Hypothyroidism, unspecified; E66.9 Obesity, unspecified; K59.00 Constipation, unspecified
CPT/HCPCS: 1328; 1530; 1748; 36415; 36592; 74177; 81001; 82436; 88304; 88305; 93005; 93010; 96361; 96372; 96374; 96375; G0378; J0131; J1644; J2405; J3490; J7042